=== PATIENT | male | born 1980 | race Caucasian/White ===

== ENCOUNTER 2018-12-17 04:43 | Emergency (ER) | payer OTHER ==
[~2018-12-17] VITALS: Ht 165.1 cm; Wt 68.5 kg
[2018-12-17 04:48] VITALS: BP 145/85
== END 2018-12-17 05:22 | disposition home or self-care (01) ==
LOC: ED 04:43
DX: Z20.2 Contact with and (suspected) exposure to infections with a predominantly sexual mode of transmission (principal)
CPT/HCPCS: 87491; 87591; J0696; Q0162

== ENCOUNTER 2019-03-31 15:02 | Emergency (ER) | payer OTHER ==
[~2019-03-31] VITALS: Ht 165.1 cm; Wt 70.3 kg
[2019-03-31 15:11] VITALS: BP 144/95; Ht 165.1 cm; Wt 70.3 kg
== END 2019-03-31 16:32 | disposition home or self-care (01) ==
LOC: ED 15:02
DX: F11.20 Opioid dependence, uncomplicated (principal); Z13.9 Encounter for screening, unspecified